=== PATIENT | female | born 1960 | race Caucasian/White ===

== ENCOUNTER 2023-05-25 17:16 | Outpatient (REF) | payer BC, SELFPAY | END 2023-05-25 17:17 | disposition home or self-care (01) | LOC: LBN 17:16 | PROVIDERS: Visit Provider Nurse Practitioner Family | DX: L08.89 Other specified local infections of the skin and subcutaneous tissue (principal); T81.49XA Infection following a procedure, other surgical site, initial encounter | CPT/HCPCS: 87077; 87070; 87186; 87205 ==

== ENCOUNTER 2023-12-29 10:15 | Emergency (ER) | payer BC, SELFPAY ==
[2023-12-29] VITALS (12 sets, daily range): BP systolic 112–178; BP diastolic 62–95; PULSE 56–75; RESP 10–19; TEMP 35.7; O2SAT 93–98
--- NOTE | 2023-12-29 10:15 | RT.EKG_ITS ---
APPROVED REPORT Exam: Resting ECG Reason for Exam: palpitations Patient Location: E HR:67 bpm ECG Measurements Heart Rate 67 AXIS UT 165 P 2 QRSd 88 QRS 16 QT 385 T 6 QTc 407 Conclusion Sinus rhythm 67 no stemi
--- NOTE | 2023-12-29 10:30 | DI.RAD_ITS ---
Exam(s) XR CHEST 2V PA LATERAL EXAM: XR CHEST 2V PA LATERAL CLINICAL HISTORY: chest pain. TECHNIQUE: 2D digital imaging was performed. COMPARISON: No exams were available for comparison FINDINGS: 2 views: Heart size is normal. The mediastinum is not widened. Lungs are clear. No infiltrates nor pleural effusions. IMPRESSION: No acute pulmonary findings. DATA REPOSITORY: RADIATION DOSE DELIVERED:
[2023-12-29] MEDS: Famotidine 20 MG/2 ML VIAL IVP (10:49)
[2023-12-29 10:58] LABS: Abs Immature Grans 0.02 10^3/uL (0.0-0.06); Absolute Basophil Count 0.03 10^3/uL (0.0-0.2); Absolute Eosinophil Count 0.17 10^3/uL (0.0-0.7); Absolute Lymphocyte Count 1.68 10^3/uL (1.2-3.4); Absolute Monocyte Count 0.49 10^3/uL (0.1-0.8); Absolute Neutrophil Count 2.77 10^3/uL (1.2-6.7); Basophils % 0.6; Eosinophils % 3.3; HCT 39.4 % (36.0-46.0); HGB 12.8 g/dL (11.2-15.7); Immature Grans % 0.4; Lymphocytes % 32.6; MCH 29.1 pg (27.0-33.0); MCHC 32.5 % (32.0-36.0); MCV 90 fL (80-95); MPV 10.7 fL (8.0-11.0); Monocytes % 9.5; Neutrophils % 53.6; Platelet Count 238 10^3/uL (130-400); RDW 12.5 % (11.7-14.6); RDW-SD 41.4 fL; WBC 5.16 10^3/uL (4.4-10.8)
--- NOTE | 2023-12-29 11:17 | DI.VRAD_ITS ---
PROCEDURE INFORMATION: Exam: XR Chest Exam date and time: 12/29/2023 11:00 AM Age: 63 years old Clinical indication: Other: Chest pain TECHNIQUE: Imaging protocol: Radiologic exam of the chest. Views: 2 views. COMPARISON: No relevant prior studies available. FINDINGS: Lungs: Unremarkable. No consolidation. Pleural spaces: Unremarkable. No pleural effusion. No pneumothorax. Heart/Mediastinum: Unremarkable. No cardiomegaly. Bones/joints: Unremarkable. IMPRESSION: No acute findings. Dictated and Authenticated by: Jesús Rea MD. Ordering:LIZA Yarbrough MD
[2023-12-29 11:23] LABS: ALT 30 U/L (14-59); AST 31 U/L (15-37); Albumin 3.4 g/dL (3.4-5.0); Alkaline Phosphatase 86 U/L (46-116); Anion Gap 11.1 mmol/L (3-11); BUN 12 mg/dL (7-18); Bilirubin, Total 0.3 mg/dL (0.2-1.0); CO2 26.9 mmol/L (21.0-32.0); CREATININE 0.9 mg/dL (0.55-1.02); Chloride 104 mmol/L (98-107); Estimated GFR 72.73 (mL/min/1.73m2); Glucose 93 mg/dL (74-106); Lipase 38 U/L (16-77); Magnesium 1.8 mg/dL (1.8-2.4); Potassium 3.6 mmol/L (3.5-5.1); Sodium 142 mmol/L (136-145); Total Protein 6.8 g/dL (6.4-8.2); Troponin I < 50 ng/L (< or =60)
[2023-12-29 11:30] LABS: D-Dimer 348 ng/mlFEU (<500)
[2023-12-29 11:39] LABS: FREE T4 0.89 ng/dL (0.76-1.46)
--- NOTE | 2023-12-29 11:40 | ED.GENADUL_ITS ---
Discharge Plan Disposition Patient Disposition: Home Condition: Stable Discharge Details Clinical Impression: Acute epigastric pain Primary Care Provider: [facility] Provider: Linnea Schroeder Home Meds and New Rx's Prescriptions: Continued olmesartan [Benicar] 40 mg tablet 40 mg PO DAILY citalopram 40 mg tablet 40 mg PO DAILY pantoprazole 40 mg tablet,delayed release (DR/EC) 40 mg PO DAILY ferrous sulfate 325 mg (65 mg iron) tablet 325 mg PO DAILY Discharge Instructions Instructions: Abdominal Pain (ED) Additional Instructions: Please follow-up with your primary care physician tomorrow and let them know about your event Your tests today are reassuring including 2 negative heart enzyme levels, a D- dimer which is a preliminary screen for blood clot in your lung, and your diagnostic labs are reassuring Your thyroid is ever so slightly elevated but nothing that needs intervention at this time, at 4.8 Your chest x-ray does not show evidence of acute abnormality and you have not had pain throughout this encounter, I would recommend following up with your doctor this week and being reevaluated should you develop recurrence of your symptoms HPI General Date/Time Provider Initiated Documentation: 12/29/23 10:33 . HPI Narrative: This 48-year-old female presents with report of acute onset of epigastric pain after urinating this morning. Patient states she had sharp shooting pain across her epigastrium denies radiation to chest. States she was having trouble breathing at the time. States the episode lasted approximately 5 minutes and she took an inhaler as she does have a history of asthma and it improved her symptoms. She states that when she had acute cholecystitis she believes her presentation was similar although she had cholecystectomy with ERCP done approximately 3 years ago and has not had an episode since that time. She has missed her current medication for the past several days and is wondering if it is contributing. Currently she is exhibiting no discomfort. She denies any exertional component to her symptoms. She denies any current shortness of breath. She denies any nausea or vomiting. She did take a shower after the episode occurred to see if it would help with her symptoms. Denies any additional complaints at this time. Denies any recent flights, surgeries, long drives. Related Data Home Medications Medication Instructions Recorded Confirmed citalopram 40 mg tablet 40 mg PO DAILY 12/29/23 12/29/23 ferrous sulfate 325 mg (65 mg 325 mg PO DAILY 12/29/23 12/29/23 iron) tablet olmesartan 40 mg tablet (Benicar) 40 mg PO DAILY 12/29/23 12/29/23 pantoprazole 40 mg tablet,delayed 40 mg PO DAILY 12/29/23 12/29/23 release Allergies Allergy/AdvReac Type Severity Reaction Status Date / Time azithromycin AdvReac Diarrhea Verified 12/29/23 10:23 seasonal AdvReac Mild Wheezing Uncoded 12/29/23 10:23 General Stated Complaint: Chest Pain KAYDEN: 3 Exam Narrative Exam Narrative: 63-year-old female in no acute distress, pupils equal round reactive to light and accommodation No icterus or jaundice, lungs clear to auscultation bilaterally, cardiac rate rhythm regular, no abdominal tenderness Relatively benign exam, chest x-ray per radiology interpretation my review does not show evidence of acute abnormality, troponins x 2 negative, D-dimer negative, very mild elevation in thyroid at 4.8 with normal free T4 No abdominal tenderness, low suspicion clinically for abdominal aortic di ssection or thoracic aortic dissection Patient was observed for hours without acute onset of recurrence of symptoms Return precautions reviewed and patient expressed understanding, discharged home in stable condition, encouraged to follow-up with primary care physician on Saturday Course Vital Signs Vital signs: Vital Signs Temperature 35.7 C L 12/29/23 10:18 Pulse 75 12/29/23 10:18 Respiratory Rate 18 12/29/23 10:18 Pulse Oximetry 98 12/29/23 10:18 Temperature 35.7 C L 12/29/23 10:18 Temperature Source Skin 12/29/23 10:18 Pulse 75 12/29/23 10:18 Respiratory Rate 16 12/29/23 10:35 Respiratory Effort Normal 12/29/23 10:35 Respiratory Depth Normal 12/29/23 10:35 Respiratory Pattern Normal 12/29/23 10:35 Blood Pressure Position Sitting 12/29/23 10:18 Pulse Oximetry 98 12/29/23 10:18 Oxygen Delivery Method Room Air 12/29/23 10:18 Oxygen Flow Rate 0 12/29/23 10:18 Lab/Test Results Lab/Test Results: Laboratory Tests Range/Units 12/29/23 10:35 WBC (4.4-10.8) 10^3/uL 5.16 RBC (3.93-5.22) 10^6/uL 4.40 Hgb (11.2-15.7) g/dL 12.8 Hct (36.0-46.0) % 39.4 MCV (80-95) fL 90 MCH (27.0-33.0) pg 29.1 MCHC (32.0-36.0) % 32.5 RDW (11.7-14.6) % 12.5 Plt Count (130-400) 10^3/uL 238 MPV (8.0-11.0) fL 10.7 Immature Gran % 0.4 Neutrophils % 53.6 Lymphocytes % 32.6 Monocytes % 9.5 Eosinophils % 3.3 Basophils % 0.6 Nucleated RBC % (0.0-0.3) % 0.0 Absolute Neutrophils (1.2-6.7) 10^3/uL 2.77 Absolute Lymphocytes (1.2-3.4) 10^3/uL 1.68 Absolute Monocytes (0.1-0.8) 10^3/uL 0.49 Absolute Eosinophils (0.0-0.7) 10^3/uL 0.17 Absolute Basophils (0.0-0.2) 10^3/uL 0.03 D-Dimer (<500) ng/mlFEU 348 Sodium (136-145) mmol/L 142 Potassium (3.5-5.1) mmol/L 3.6 Chloride (98-107) mmol/L 104 Carbon Dioxide (21.0-32.0) mmol/L 26.9 Anion Gap (3-11) mmol/L 11.1 H BUN (7-18) mg/dL 12 Creatinine (0.55-1.02) mg/dL 0.9 Est GFR (CKD-EPI 2020) (mL/min/1.73m2) 72.73 Glucose (74-106) mg/dL 93 Calcium (8.5-10.1) mg/dL 9.0 Magnesium (1.8-2.4) mg/dL 1.8 Total Bilirubin (0.2-1.0) mg/dL 0.3 AST (15-37) U/L 31 ALT (14-59) U/L 30 Alkaline Phosphatase (46-116) U/L 86 Troponin I (< or =60) ng/L < 50 Total Protein (6.4-8.2) g/dL 6.8 Albumin (3.4-5.0) g/dL 3.4 Lipase (16-77) U/L 38 TSH (0.36-3.74) uIU/mL 4.80 H Medical Decision Making Quality:SDOH Health Related Social Needs: No Data to Display PFSH All Active Problems (Updated 12/29/23 @ 14:09 by ANAT Lujan) Acute epigastric pain (Acute) Social History Smoking/Tobacco Use Status: Never Smoking risk assessment performed?: Yes Alcohol Intake: current Alcohol Intake frequency: holidays/special occasions only Substance use type: does not use
[2023-12-29 11:58] LABS: Bilirubin Negative (Negative); Blood Trace-intact (Negative); Clarity Clear (Clear); Glucose Negative (Negative); Ketones Negative (Negative); Leukocyte Esterase Negative (Negative); Nitrite Negative (Negative); Specific Gravity 1.015 (1.005-1.025); Urobilinogen 0.2 mg/dL (Up to 0.2)
[2023-12-29 12:07] LABS: Bacteria Negative HPF (Negative); C & S Indicated? No; Casts Negative LPF (Negative); Crystals Negative HPF (Negative); Epithelial Cells Rare HPF (Negative); Mucus Negative (Negative); RBC 0-2 HPF (0-2); WBC Negative HPF (0-5)
[2023-12-29 13:49] LABS: Troponin I < 50 ng/L (< or =60)
== END 2023-12-29 14:23 | disposition home or self-care (01) ==
PROVIDERS: Emergency Provider Physician Assistant
DX: R10.13 Epigastric pain (principal); K21.9 Gastro-esophageal reflux disease without esophagitis
CPT/HCPCS: 80053; 83690; 93005; 96374; 99285; 71046; 81003; 81015; 83735; 84439; 84443; 84484; 85025; 85379; 93010; 99284